=== PATIENT | female | born 1955 | race African-American/Black ===

== ENCOUNTER 2024-03-06 04:21 | Day surgery (SDC) | payer OTHER ==
[2024-03-02 16:06] VITALS: BMI 30.7
[2024-03-06] MEDS ORDERED: ROCURONIUM BROMIDE 50 MG/5 ML SYRINGE ONE (08:56)
[2024-03-06] MEDS ORDERED: MIDAZOLAM HCL 2 MG/2 ML SINGLE DOSE VIAL ONE (08:56)
[2024-03-06] MEDS ORDERED: PROPOFOL 20 ML ONE (08:56)
[2024-03-06] MEDS ORDERED: ONDANSETRON 4 MG/2 ML VIAL ONE (09:07)
[2024-03-06] MEDS ORDERED: DEXAMETHASONE SOD PHOSPHATE 4 MG/1 ML VIAL ONE ×2 (09:09→09:54)
[2024-03-06] MEDS ORDERED: SUCCINYLCHOLINE CHLORIDE 200 MG/10 ML SYRINGE ONE (09:09)
[2024-03-06] MEDS ORDERED: FLUMAZENIL 0.5 MG/5 ML VIAL ONE (09:10)
[2024-03-06] MEDS ORDERED: BACITRACIN ZINC 15 GM TUBE TOPICAL OINTMENT ONE (09:28)
[2024-03-06] MEDS: ceFAZolin SODIUM 1 GM VIAL IVPB ONE (09:35)
[2024-03-06] MEDS ORDERED: ceFAZolin SODIUM 1 GM VIAL ONE (09:38)
[2024-03-06] MEDS ORDERED: ACETAMINOPHEN INJECTION 100 ML IVPB ONE (09:39)
[2024-03-06] MEDS ORDERED: SCOPOLAMINE HYDROBROMIDE 1 PATCH PATCH.TD72 ONE ×2 (09:39→12:46)
[2024-03-06] MEDS ORDERED: KETOROLAC TROMETHAMINE 30 MG/1 ML VIAL ONE (09:55)
[2024-03-06] MEDS: LIDOCAINE HCL 1%, 10 MG/ML (20ML VIAL) INF ONE (10:28)
[2024-03-06] MEDS ORDERED: oxyCODONE HCL 5 MG TABLET PO PRN (10:55)
[2024-03-06] MEDS ORDERED: ONDANSETRON 4 MG/2 ML VIAL IVPUSH PRN (10:55)
[2024-03-06] MEDS ORDERED: IBUPROFEN 400 MG TABLET (FP) PO PRN (10:59)
[2024-03-06] MEDS ORDERED: ACETAMINOPHEN 325 MG TABLET (FP) PO PRN (10:59)
[2024-03-06] MEDS ORDERED: LACTATED RINGERS SOLUTION 1,000 ML IV SCH (11:00)
[2024-03-06] MEDS ORDERED: PROMETHAZINE HCL 25 MG/1 ML VIAL ONE (15:03)
[2024-03-06] MEDS: PROMETHAZINE HCL 25 MG/1 ML VIAL IVPB PRN (15:05)
[2024-03-06 17:09] VITALS: BP 126/67; PULSE 87; RESP 20; TEMP 97
== END 2024-03-06 17:34 | disposition home or self-care (01) ==
LOC: JASU-SURG 04:21
PROVIDERS: ATTEND Obstetrics & Gynecology
PROC: 0UBC7ZX Excision of Cervix, Via Natural or Artificial Opening, Diagnostic (ICD-10-PCS; principal; 2024-03-06 08:30)
DX: N81.85 Cervical stump prolapse (principal); N81.6 Rectocele; R10.2 Pelvic and perineal pain; B97.7 Papillomavirus as the cause of diseases classified elsewhere; N87.9 Dysplasia of cervix uteri, unspecified
CPT/HCPCS: 82962; 88304-TC; 88305-TC; 94760; J0131